=== PATIENT | male | born 1955 | race Caucasian/White ===

== ENCOUNTER 2025-01-23 18:19 | Emergency (ER) | payer OTHER ==
[~2025-01-23] VITALS: Ht 177.8 cm; Wt 99.8 kg
[2025-01-23 18:43] VITALS: PULSE 89; RESP 16; TEMP 98.7
[2025-01-23 20:55] VITALS: BP 156/103; PULSE 75; RESP 15; TEMP 98.3; O2SAT 95
== END 2025-01-23 21:01 | disposition home or self-care (01) ==
LOC: ER 18:54
DX: Z46.6 Encounter for fitting and adjustment of urinary device (principal)
CPT/HCPCS: 99283